=== PATIENT | female | born 1965 | race Caucasian/White ===

== ENCOUNTER 2016-04-22 19:43 | Emergency (ER) | payer OTHER ==
--- NOTE | ~2016-04-22 | CR20 ---
[facility] A Service of [facility] & [facility] RADIOLOGY TEXT RESULTS PATIENT: KAROLINE DO LOCATION: [facility] : 67 UNIT #: [id number] AGE: [address]: Enriqueta Bowman SEX: F ORDER DR: [id number] [facility] [address] [place], [place] [address] [id number] E MR#: [id number] Acc #: [id number] NAME: KAROLINE DO : 1965 SEX: F STUDY DATE/TIME: 04/22/2016 18:53 UNIT: [facility] ROOM: STUDY DESCRIPTION: CR Ankle Min 3 Views Lt Attending Physician: Enriqueta Bowman Pa-C Ordering Physician: Ed Juve Finn M.D. Primary Care Physician: Shweta Hernandez M.D. MEDICAL IMAGING REPORT This report is preliminary unless electronic signature is present EXAM Left ankle 3 views 04/22/2016. HISTORY Twisted left foot and ankle getting off commode today with a pain and swelling. FINDINGS AP, lateral, and oblique projections of the left ankle show satisfactory integrity of the joint mortise with a smooth articular surface. There is no identifiable fracture, dislocation, or radiopaque foreign body. IMPRESSION Normal left ankle. Dictated by... Luca Gee M.D. THIS IS AN ELECTRONICALLY VERIFIED REPORT Luca Gee M.D. at 04/23/2016 3:26 PM KRT/gz TD: 04/23/2016 14:13 JOB #: [id number] MEDICAL IMAGING REPORT COPY
--- NOTE | ~2016-04-22 | CR126 ---
[facility] A Service of [facility] & [facility] RADIOLOGY TEXT RESULTS PATIENT: KAROLINE DO LOCATION: [facility] : 67 UNIT #: [id number] AGE: [address]: Enriqueta Bowman SEX: F ORDER DR: [id number] [facility] [address] [place], [place] [address] [id number] E MR#: [id number] Acc #: [id number] NAME: KAROLINE DO : 1965 SEX: F STUDY DATE/TIME: 04/22/2016 18:56 UNIT: [facility] ROOM: STUDY DESCRIPTION: CR Foot Complete Min 3 View Lt Attending Physician: Enriqueta Bowman Pa-C Ordering Physician: Ed Doctor [id number] [facility] Primary Care Physician: Shweta Hernandez M.D. MEDICAL IMAGING REPORT This report is preliminary unless electronic signature is present EXAM Left foot 3 views 04/22/2016 HISTORY Left foot pain and swelling. Twisted left foot and ankle today getting off commode. FINDINGS The tarsal, metatarsal, and phalangeal elements are all anatomically normal in position and alignment. There are no articular defects. No fractures or radiopaque foreign bodies in the soft tissues are apparent. IMPRESSION Normal left foot. Dictated by... Luca Gee M.D. THIS IS AN ELECTRONICALLY VERIFIED REPORT Luca Gee M.D. at 04/23/2016 3:26 PM KRT/bernardo TD: 04/23/2016 14:16 JOB #: [id number] MEDICAL IMAGING REPORT COPY
--- NOTE | ~2016-04-22 | CR252 ---
[facility] A Service of [facility] & [facility] RADIOLOGY TEXT RESULTS PATIENT: KAROLINE DO LOCATION: [facility] : 67 UNIT #: [id number] AGE: [address]: Enriqueta Bowman SEX: F ORDER DR: [id number] [facility] [address] [place], [place] [address] [id number] E MR#: [id number] Acc #: [id number] NAME: KAROLINE DO : 1965 SEX: F STUDY DATE/TIME: 04/22/2016 18:52 UNIT: [facility] ROOM: STUDY DESCRIPTION: CR Tibia and Fibula 2 Views Lt Attending Physician: Enriqueta Bowman Pa-C Ordering Physician: Ed Juve Finn M.D. Primary Care Physician: Shweta Hernandez M.D. MEDICAL IMAGING REPORT This report is preliminary unless electronic signature is present EXAM Left tibia and fibula, 2 views, 04/22/2016. HISTORY Left lower extremity pain beginning today. Twisted left lower extremity while getting off commode today. FINDINGS There is no evidence of fracture, dislocation, or radiopaque foreign body. IMPRESSION Normal tibia and fibula. Dictated by... Luca Gee M.D. THIS IS AN ELECTRONICALLY VERIFIED REPORT Luca Gee M.D. at 04/23/2016 3:26 PM KRT/don TD: 04/23/2016 14:15 JOB #: [id number] MEDICAL IMAGING REPORT COPY
[~2016-04-22 19:43] MED LIST: ALAVERT10 M1 PO; ALBUTEROL MININEB NEB; ALBUTEROL17 GM INH; AMOXICILLIN; ASPIRIN PO; ASPIRIN81 M1 PO; ATARAX PO; ATORVASTATIN CA40 MG PO; BACITRACIN15 GM TOP; BACTRIM DS TABL1 TA1 PO; BACTROBAN OINTMENT; BACTROBAN15 GM TOP; BENADRYL25 MG PO; CALCIUM 500 + D1 TAB PO; CELEXA PO; CERTAGEN PO; CLARITIN10 M3 PO; CLEOCIN HCL300 M1 PO; COLACE PO; CRESTOR PO; DARVOCET-N 1001 TAB PO; DOXYCYCLINE HY100 M3 PO; DOXYCYCLINE PO; DOXYCYCLINE150 MG; DUETACT PO; DYAZIDE 37.5/251 CAP PO; DYRENIUM100 MG PO; EC-NAPROSYN500 MG PO; ERYTHROMYC3.5 GM OPT OD; FIORICET 50-321 EACH PO; FLEXERIL PO; GAS-X166 MG PO; HCTZ; HIBICLENS 4% L120 ML TOP; IBUPROFEN800 MG PO; KCL PO; KEFLEX PO; KEFLEX500 MG PO; KEPPRA500 M2 PO; KEPPRA500 MG PO; KEPPRA750 MG PO; LEVOXYL175 MCG PO; LEXAPRO; LIPITOR40 MG PO; LORATADINE PO; LORTAB 5/500 TA1 TA1 PO; LORTAB 5/500 TA1 TA2 PO; LORTAB 7.5-5001 TAB PO; MAXZIDE 75/50 T1 TAB PO; MOBIC15 MG DOB; MOBIC15 MG PO; MOM PO; MUPIROCIN; NAPROSYN-EC500 MG PO; NAPROSYN500 MG PO; NASAL SPRAY; NORCO 5/325 TAB1 TAB; OXYGEN; PHENERGAN PO; PHENERGAN25 M1 PO; PREDNISONE PO; PRILOSEC PO; PRILOSEC20 M1 PO; PRILOSEC20 MG DOB; PRILOSEC20 MG PO; PROAIR; PROZAC PO; RIFAMPIN300 MG PO; SIMVASTATIN40 MG; SYNTHROID PO; SYNTHROID175 MCG PO; TOPAMAX25 MG PO; TOPIRAGEN25 MG PO; TOPIRAMATE25 MG PO; VICODIN 5/500 T1 TAB PO; VICODIN PO; VISTARIL PO; ZOCOR; ZOCOR PO; [UNRECOGNIZED DRUG - OTHER]
== END 2016-04-22 20:01 | disposition home or self-care (01) ==
LOC: CFTX 19:43
DX: S93.402A Sprain of unspecified ligament of left ankle, initial encounter (principal); I10 Essential (primary) hypertension; K21.9 Gastro-esophageal reflux disease without esophagitis; J45.909 Unspecified asthma, uncomplicated; E03.9 Hypothyroidism, unspecified; X50.1XXA Overexertion from prolonged static or awkward postures, initial encounter; Y92.89 Other specified places as the place of occurrence of the external cause
CPT/HCPCS: 29540; 73590; 73610; 73630; 99284

== ENCOUNTER 2016-07-07 19:14 | Emergency (ER) | payer OTHER ==
--- NOTE | ~2016-07-07 | CR63 ---
[facility] A Service of [facility] & [facility] RADIOLOGY TEXT RESULTS PATIENT: KAROLINE DO LOCATION: [place] : 67 UNIT #: [id number] AGE: [address]: Latonya Madsen APRN SEX: F ORDER DR: [id number] [facility] [address] [place], [place] [address] [id number] E MR#: [id number] Acc #: [id number] NAME: KAROLINE DO : 1965 SEX: F STUDY DATE/TIME: 07/07/2016 21:29 UNIT: [facility] ROOM: STUDY DESCRIPTION: CR Chest 2 View Attending Physician: Latonya Madsen A.P.R.N. Ordering Physician: Latonya Madsen A.P.R.N. Primary Care Physician: Shweta Hernandez M.D. MEDICAL IMAGING REPORT This report is preliminary unless electronic signature is present EXAM Chest x-ray, 07/07/2016 INDICATION Cough and congestion for 3 days. FINDINGS 2 views of the chest are compared with 12/03/2013. The heart is enlarged. Lungs are clear. Vascularity is normal. There is no pneumothorax. Lateral view is essentially nondiagnostic due to patient body habitus. IMPRESSION Stable cardiomegaly. No active disease. Dictated by... Ha Sidhu Jr., M.D. THIS IS AN ELECTRONICALLY VERIFIED REPORT Ha Sidhu Jr., M.D. at 07/08/2016 10:14 AM CHARLIE/ki TD: 07/07/2016 22:10 JOB #: [id number] MEDICAL IMAGING REPORT Page 1 of 1 COPY
== END 2016-07-07 22:30 | disposition home or self-care (01) ==
LOC: CED 19:14 → CFTX 19:14
DX: J06.9 Acute upper respiratory infection, unspecified (principal); J44.9 Chronic obstructive pulmonary disease, unspecified; I10 Essential (primary) hypertension; E78.5 Hyperlipidemia, unspecified; K21.9 Gastro-esophageal reflux disease without esophagitis; F41.8 Other specified anxiety disorders; Z88.8 Allergy status to other drugs, medicaments and biological substances; Z88.2 Allergy status to sulfonamides; Z91.040 Latex allergy status; Z88.5 Allergy status to narcotic agent
CPT/HCPCS: 71020; 99283

== ENCOUNTER 2016-07-21 02:11 | Emergency (ER) | payer OTHER ==
--- NOTE | ~2016-07-21 | XA198 ---
[facility] A Service of [facility] RADIOLOGY TEXT RESULTS PATIENT: KAROLINE DO LOCATION: [facility] : 67 UNIT #: [id number] AGE: [address]: Ha Hoff MD SEX: F ORDER DR: [id number] [facility] [address] [place], [place] [address] [id number] E MR#: [id number] Acc #: [id number] NAME: KAROLINE DO : 1965 SEX: F STUDY DATE/TIME: 07/21/2016 8:25 UNIT: [facility] ROOM: STUDY DESCRIPTION: XA Spinal Puncture Attending Physician: Ha Hoff M.D. Ordering Physician: Karla Barnett M.D. Primary Care Physician: Shweta Hernandez M.D. MEDICAL IMAGING REPORT This report is preliminary unless electronic signature is present EXAM Lumbar puncture under fluoroscopy HISTORY Headache FINDINGS The procedure, attendant risks and options were discussed with the patient. She understands and wishes to proceed. The patient was placed in the prone position in the angio suite. An appropriate site was chosen. The skin was marked, prepped, draped and anesthetized with 1% Xylocaine. A long 20-gauge spinal needle was inserted into the lumbar subarachnoid space at the L1-2 level. 8 mL of clear CSF was retrieved. Total fluoroscopy time 1.6 minutes. Total exposure 305 mGy air kerma standard. The needle was removed. Hemostasis achieved. The patient returned to the waterman in stable condition. A single spot radiograph was obtained. CONCLUSION Successful LP under fluoro at the L1-2 level. Dictated by... Jesse Brewster M.D. THIS IS AN ELECTRONICALLY VERIFIED REPORT Jesse Brewster M.D. at 07/24/2016 9:18 AM Tatyana TD: 07/21/2016 11:39 JOB #: [id number] MEDICAL IMAGING REPORT [facility] A Service [facility] RADIOLOGY TEXT RESULTS PATIENT: KAROLINE DO LOCATION: [facility] : 67 UNIT #: [id number] AGE: [address]: Ha Hoff MD SEX: F ORDER DR: Page 1 of 1 COPY
--- NOTE | ~2016-07-21 | CT71 ---
[facility] A Service of [facility] RADIOLOGY TEXT RESULTS PATIENT: KAROLINE DO LOCATION: [facility] : 67 UNIT #: [id number] AGE: [address]: Karla Barnett MD SEX: F ORDER DR: [id number] [place] [id number] [facility] [place], [place] [address] [id number] P MR#: [id number] Acc #: [id number] NAME: KAROLINE DO : 1965 SEX: F STUDY DATE/TIME: 07/21/2016 3:08 UNIT: [facility] ROOM: STUDY DESCRIPTION: CT Head Wo Contrast Attending Physician: Karla Barnett M.D. Ordering Physician: Karla Barnett M.D. Primary Care Physician: Shweta Hernandez M.D. MEDICAL IMAGING REPORT This report is preliminary unless electronic signature is present EXAM CT head, noncontrast, 07/21/2016 HISTORY 51-year-old female in the ED complaining of headache, blurred vision and that left side neck pain beginning at about 2330 hours on 07/20/2016. TECHNIQUE CT examination of the head was performed without IV contrast. This CT exam was performed with one or more of the following radiation dose reduction techniques: automatic exposure control, adjustment of mA and/or kV according to patient size, and iterative reconstruction. FINDINGS The examination is negative. No evidence of intracranial hemorrhage, mass, mass effect, cerebral edema, hydrocephalus or additional abnormality. No change since the prior study of 12/03/2013. IMPRESSION Negative head CT examination. No change since 12/03/2013. Dictated by... Tin Szymanski M.D. THIS IS AN ELECTRONICALLY VERIFIED REPORT Tin Szymanski M.D. at 07/21/2016 6:06 AM Prudencio TD: 07/21/2016 04:13 JOB #: [id number] [facility] A Service [facility] RADIOLOGY TEXT RESULTS PATIENT: KAROLINE DO LOCATION: [facility] #: [id number] : 67 UNIT #: [id number] AGE: [address]: Karla Barnett MD SEX: F ORDER DR: MEDICAL IMAGING REPORT Page 1 of 1 COPY
--- NOTE | ~2016-07-21 | CT23 ---
[facility] A Service of [facility] & [facility] RADIOLOGY TEXT RESULTS PATIENT: KAROLINE DO LOCATION: [facility] : 67 UNIT #: [id number] AGE: [address]: Ha Hoff MD SEX: F ORDER DR: [id number] [facility] [address] [place], [place] [address] [id number] E MR#: [id number] Acc #: [id number] NAME: KAROLINE DO : 1965 SEX: F STUDY DATE/TIME: 07/21/2016 3:21 UNIT: [facility] ROOM: STUDY DESCRIPTION: CT Angio Neck Attending Physician: Ha Hoff M.D. Ordering Physician: Karla Barnett M.D. Primary Care Physician: Shweta Hernandez M.D. MEDICAL IMAGING REPORT This report is preliminary unless electronic signature is present EXAM CT angiogram of the neck HISTORY FINDINGS Please see CT angiogram of the head for results. Dictated by... Antonieta Pavon M.D. THIS IS AN ELECTRONICALLY VERIFIED REPORT Antonieta Pavon M.D. at 07/21/2016 9:14 AM Sonia TD: 07/21/2016 08:59 JOB #: [id number] MEDICAL IMAGING REPORT Page 1 of 1 COPY
--- NOTE | ~2016-07-21 | CT17 ---
[facility] A Service of [facility] & [facility] RADIOLOGY TEXT RESULTS PATIENT: KAROLINE DO LOCATION: [facility] : 67 UNIT #: [id number] AGE: [address]: Ha Hoff MD SEX: F ORDER DR: [id number] [facility] [address] [place], [place] [address] [id number] E MR#: [id number] [facility] #: [id number] NAME: KAROLINE DO : 1965 SEX: F STUDY DATE/TIME: 07/21/2016 3:21 UNIT: [facility] ROOM: STUDY DESCRIPTION: CT Angio Head Attending Physician: Ha Hoff M.D. Ordering Physician: Karla Barnett M.D. Primary Care Physician: Shweta Hernandez M.D. MEDICAL IMAGING REPORT This report is preliminary unless electronic signature is present EXAM CT angiogram of the head and neck HISTORY Headache since 23:30 today. No known injury. Pain has left-sided neck pain and blurred vision. TECHNIQUE This CT exam was performed with one or more of the following radiation dose reduction techniques: automatic exposure control, adjustment of mA and/or kV according to patient size, and iterative reconstruction. COMMENT CT angiography of the head and neck vessels performed during the intravenous administration of Isovue-370. The dose is not recorded in the PACS system and please refer to the patient's chart. Imaging acquired in the axial plane followed by multiple reconstructed and reformatted images for the purpose of 3-D CT angiography of the head and neck vessels. Comparison is made to an earlier head CT same day. Preliminary wet reading provided at 04:[address] ANGIOGRAM NECK: The study is limited by the patient's morbid obesity. Allowing for this the aortic arch branch pattern is normal and there is no hemodynamically-significant narrowing appreciated at great vessel origins. The vessels in the lower neck are particularly obscured by beam-hardening artifact from the patient's obesity. Patient's carotid systems have a medial course underlying the retropharyngeal space. By NASCET criteria 0% stenosis is suspected at either carotid bifurcation. Both carotid siphons are widely patent. Right and left vertebral arteries are grossly patent though proximally they are mostly obscured. Evaluation of the intracranial circulation shows no intracranial vascular cutoff. There is a right posterior communicator present. There is [facility] Service of [facility] & [facility] RADIOLOGY TEXT RESULTS PATIENT: KAROLINE DO LOCATION: [facility] : 67 UNIT #: [id number] AGE: [address]: Ha Hoff MD SEX: F ORDER DR: fullness at the junction of the right A1-A2 vessels up to about 4.0 mm in diameter. This is concerning for fusiform aneurysm. There might be a tiny anterior communicating artery present. A small right posterior communicator and there is probably a tiny left posterior communicator. The dural venous sinuses are patent. The right P1 vessel is mildly hypoplastic. CT angiography is limited for evaluation for aneurysm at the level of the skull base due to the adjacent bones. IMPRESSION 1. There is concern for a fusiform 4.0 mm diameter aneurysm junction right side A1-A2 vessel. There might be tiny anterior communicator adjacent to this. 2. There is no intracranial vascular cutoff. Vascular variations are discussed above. 3. By NASCET criteria 0% stenosis at either carotid bifurcation. Both vertebral arteries are patent in the neck. Both supply the basilar. 4. Study is limited by the patient's morbid obesity. In particular the beam-hardening artifact is so severe that the proximal vessels of the neck are poorly seen. 5. It appears the patient has already been scheduled for a lumbar puncture for further evaluation. ADDENDUM Findings called by myself to Dr. Hoff in the emergency room at the time of this dictation. STAT * RESULT Dictated by... Antonieta Pavon M.D. THIS IS AN ELECTRONICALLY VERIFIED REPORT Antonieta Pavon M.D. at 07/21/2016 9:14 AM Sonia TD: 07/21/2016 08:58 JOB #: [id number] MEDICAL IMAGING REPORT Page 1 of 1 COPY
[2016-07-21 03:10] LABS: BASOPHIL# 0.1 X10e3 (0-0.3); BASOPHIL% 0.8 % (0-2.5); EOSINOPHIL# 0.4 X10e3 (0-0.7); EOSINOPHIL% 5.9 % (0.0-7.0); HEMATOCRIT 40.2 % (35.0-45.0); HEMOGLOBIN 12.8 gm/dL (12.0-16.0); LYMPHOCYTE# 1.8 X10e3 (1.0-3.5); LYMPHOCYTE% 29.7 % (17.0-45.0); MEAN CELL VOLUME 91.5 FL (83-96); MEAN CORPUSCULAR HEMOGLOBIN 29.2 PG (28-34); MEAN CORPUSCULAR HGB CONC 31.9 g/dL (30-36); MEAN PLATELET VOLUME 11.8 FL (6.5-11.5); MONOCYTE# 0.4 X10e3 (0-1.0); MONOCYTE% 6.3 % (3.0-12.0); NEUTROPHIL# 3.5 X10e3 (1.5-7.1); NEUTROPHIL% 57.3 % (40-75); PLATELET COUNT 134 X10e3 (140-420); RED BLOOD COUNT 4.39 X10e (3.90-5.30); RED CELL DISTRIBUTION WIDTH 14.8 % (11.0-15.5); WHITE BLOOD COUNT 6.1 X10e3 (4.0-10.5)
[2016-07-21 03:27] LABS: PARTIAL THROMBOPLASTIN TIME 28.9 SECONDS (23.5-31.3); PROTHROMBIN TIME (PATIENT) 10.3 SECONDS (9.6-11.5)
[2016-07-21 03:32] LABS: ALBUMIN SERUM 3.7 g/dL (3.5-5.0); BILIRUBIN, DIRECT 0.1 mg/dL (0.0-0.2); BILIRUBIN,INDIRECT 0.8 mg/dL (0.0-0.9); BILIRUBIN,TOTAL 0.9 mg/dL (0.2-2.0); BUN/CREATININE RATIO 15.71; CREATININE SERUM 0.7 mg/dL (0.6-1.4); DIFF IND NO; POTASSIUM 3.6 mmol/L (3.5-5.1); PROTEIN TOTAL SERUM 6.5 g/dL (6.0-8.3)
[2016-07-21 04:05] LABS: POC - CREATININE 0.81 mg/dL (0.44-1.03); POC - GFR >60.0 mL/min (>60)
[2016-07-21 10:48] LABS: CSF TUBE NUMBER 1
[2016-07-21 10:49] LABS: CSF APPEARANCE CLEAR (CLEAR); CSF RBC 3 CMM (0); CSF TUBE NUMBER 4; CSF WBC 0 CMM (0-8); CSF XANTHACHROMIC NO
[2016-07-21 10:50] LABS: CSF RBC 6 CMM (0)
[2016-07-21 11:08] LABS: GLUCOSE-CSF 71 mg/dL (50-80); PROTEIN-CSF 37 mg/dL (15-45)
== END 2016-07-21 11:45 | disposition home or self-care (01) ==
LOC: CED 02:11
PROVIDERS: Emergency Medicine
PROC: 009U3ZZ Drainage of Spinal Canal, Percutaneous Approach (ICD-10-PCS; principal; 2016-07-21)
DX: R51 Headache (principal); E11.9 Type 2 diabetes mellitus without complications; E78.5 Hyperlipidemia, unspecified; F90.9 Attention-deficit hyperactivity disorder, unspecified type; E03.9 Hypothyroidism, unspecified; Z98.890 Other specified postprocedural states; Z88.1 Allergy status to other antibiotic agents; Z88.2 Allergy status to sulfonamides; Z91.040 Latex allergy status; Z88.8 Allergy status to other drugs, medicaments and biological substances; Z88.5 Allergy status to narcotic agent
CPT/HCPCS: 70450; 70496; 70498; 77003; 80048; 80076; 82565; 82945; 84157; 85025; 85610; 85730; 87070; 87205; 89051; 96361; 96374; 96375; 99284; C1713; J1170; J1200; J1885; J2405; J2765; Q9967

== ENCOUNTER 2016-08-09 22:32 | Emergency (ER) | payer OTHER ==
--- NOTE | ~2016-08-09 | CR72 ---
[facility] A Service of [facility] & [facility] RADIOLOGY TEXT RESULTS PATIENT: KAROLINE DO LOCATION: [facility] : 67 UNIT #: [id number] AGE: [address]: MARKUS QUINTANA APRN SEX: F ORDER DR: [id number] [facility] [address] [place], [place] [address] [id number] E MR#: [id number] Acc #: [id number] NAME: KAROLINE DO : 1965 SEX: F STUDY DATE/TIME: 08/09/2016 23:32 UNIT: [facility] ROOM: STUDY DESCRIPTION: CR Chest Single View Portable Attending Physician: Markus Quintana Aprn Ordering Physician: Markus Quintana Aprn Primary Care Physician: Shweta Hernandez M.D. MEDICAL IMAGING REPORT This report is preliminary unless electronic signature is present EXAM Portable chest INDICATION Chest pain, shortness of air for the past 2 days. PROCEDURE Frontal view chest. COMPARISON 07/07/2016. FINDINGS Stable mild cardiomegaly. There is no dense consolidation, pleural fluid or pneumothorax. IMPRESSION Stable mild cardiomegaly. Dictated by... Jose Rasmussen M.D. THIS IS AN ELECTRONICALLY VERIFIED REPORT Jose Rasmussen M.D. at 08/10/2016 10:28 PM MIKEL/betzaida TD: 08/10/2016 08:15 JOB #: [id number] MEDICAL IMAGING REPORT Page 1 of 1 COPY
--- NOTE | ~2016-08-09 | EKG ---
PATIENT: KAROLINE DO UNIT #: [id number] Ventricular Rate: 68 BPM Atrial Rate: 68 BPM P-R Interval: 176 ms QRS Duration: 86 ms Q-T Interval: 384 ms QTC Calculation(Bezet): 408 ms P Murphy: 0 degrees Calculated R Murphy: 10 degrees Calculated T Murphy: 55 degrees Diagnosis Line: Normal sinus rhythm Diagnosis Line: Normal ECG Diagnosis Line: When compared with ECG of 19-JAN-2014 16:07, Diagnosis Line: No significant change was found Diagnosis Line: Confirmed by TIFF MCDOWELL MD ([id number]) on Diagnosis Line: 08/10/2016 11:04:50 AM INTERPRETING MD: TREVON
[2016-08-10 00:18] LABS: BASOPHIL# 0.1 X10e3 (0-0.3); EOSINOPHIL# 0.3 X10e3 (0-0.7); EOSINOPHIL% 4.3 % (0.0-7.0); HEMATOCRIT 38.5 % (35.0-45.0); HEMOGLOBIN 12.3 gm/dL (12.0-16.0); LYMPHOCYTE% 26.2 % (17.0-45.0); MEAN CELL VOLUME 90.5 FL (83-96); MEAN CORPUSCULAR HGB CONC 32.1 g/dL (30-36); MEAN PLATELET VOLUME 11.6 FL (6.5-11.5); MONOCYTE# 0.4 X10e3 (0-1.0); NEUTROPHIL# 4.7 X10e3 (1.5-7.1); NEUTROPHIL% 62.5 % (40-75); PLATELET COUNT 161 X10e3 (140-420); RED BLOOD COUNT 4.25 X10e (3.90-5.30); RED CELL DISTRIBUTION WIDTH 14.9 % (11.0-15.5); WHITE BLOOD COUNT 7.5 X10e3 (4.0-10.5)
[2016-08-10 00:22] LABS: DIFF IND NO
[2016-08-10 00:41] LABS: BILIRUBIN, DIRECT 0.2 mg/dL (0.0-0.2); BILIRUBIN,INDIRECT 0.4 mg/dL (0.0-0.9); BILIRUBIN,TOTAL 0.6 mg/dL (0.2-2.0); BUN/CREATININE RATIO 17.14; CALCIUM SERUM 9.3 mg/dL (8.4-10.2); CREATININE SERUM 0.7 mg/dL (0.6-1.4); POTASSIUM 4.6 mmol/L (3.5-5.1); PROTEIN TOTAL SERUM 6.9 g/dL (6.0-8.3)
[2016-08-10 00:55] LABS: POC - CKMB 1.4 ng/mL (0.0-7.9); POC - TROPONIN <0.05 ng/mL (<=0.05)
[2016-08-10 02:16] LABS: POC - CKMB 1.1 ng/mL (0.0-7.9); POC - TROPONIN <0.05 ng/mL (<=0.05)
== END 2016-08-10 03:05 | disposition home or self-care (01) ==
LOC: CED 22:32
PROVIDERS: Nurse Practitioner Family
DX: R07.89 Other chest pain (principal); R06.02 Shortness of breath; E11.9 Type 2 diabetes mellitus without complications; I10 Essential (primary) hypertension; K21.9 Gastro-esophageal reflux disease without esophagitis; J44.9 Chronic obstructive pulmonary disease, unspecified; J45.909 Unspecified asthma, uncomplicated; F41.9 Anxiety disorder, unspecified; E66.01 Morbid (severe) obesity due to excess calories; Z88.1 Allergy status to other antibiotic agents; Z88.2 Allergy status to sulfonamides; Z88.5 Allergy status to narcotic agent; Z91.040 Latex allergy status
CPT/HCPCS: 36415; 71010; 80048; 80076; 82553; 84484; 85025; 93005; 96374; 99285; J2405

== ENCOUNTER 2016-08-20 08:45 | Emergency (ER) | payer OTHER ==
--- NOTE | ~2016-08-20 | CR20 ---
[facility] A Service of [facility] & [facility] RADIOLOGY TEXT RESULTS PATIENT: KAROLINE DO LOCATION: [facility] : 67 UNIT #: [id number] AGE: [address]: Katie Mustafa APRN SEX: F ORDER DR: [id number] [facility] [address] [place], [place] [address] [id number] E MR#: [id number] Acc #: [id number] NAME: KAROLINE DO : 1965 SEX: F STUDY DATE/TIME: 08/20/2016 10:09 UNIT: [facility] ROOM: STUDY DESCRIPTION: CR Ankle Min 3 Views Lt Attending Physician: Katie Mustafa A.P.R.N. Referring Physician: Enrike Brenner M.D. Ordering Physician: Ed Juve Finn M.D. Primary Care Physician: Shweta Hernandez M.D. MEDICAL IMAGING REPORT This report is preliminary unless electronic signature is present EXAM Left ankle. HISTORY Leg gave out yesterday. Patient fell. Ankle pain. TECHNIQUE Three views of the left ankle were obtained and compared with 04/22/2016. FINDINGS Small bone spurs are seen both medially and laterally. This is unchanged. There is no evidence of fracture. The ankle mortise is symmetric and the dome of the talus is intact. IMPRESSION Mild degenerative changes at the ankle. No fracture seen. Dictated by... Ha Patel M.D. THIS IS AN ELECTRONICALLY VERIFIED REPORT Ha Patel M.D. at 08/21/2016 9:58 AM JIGAR/terence TD: 08/20/2016 20:16 JOB #: [id number] MEDICAL IMAGING REPORT Page 1 of 1 COPY
--- NOTE | ~2016-08-20 | CR169 ---
[facility] A Service of [facility] & [facility] RADIOLOGY TEXT RESULTS PATIENT: KAROLINE DO LOCATION: [facility] : 67 UNIT #: [id number] AGE: [address]: Katie Mustafa APRN SEX: F ORDER DR: [id number] [facility] [address] [place], [place] [address] [id number] E MR#: [id number] Acc #: [id number] NAME: KAROLINE DO : 1965 SEX: F STUDY DATE/TIME: 08/20/2016 10:10 UNIT: [facility] ROOM: STUDY DESCRIPTION: CR Knee 2 Views Lt Attending Physician: Katie Mustafa A.P.R.N. Referring Physician: Enrike Brenner M.D. Ordering Physician: Ed Juve Finn M.D. Primary Care Physician: Shweta Hernandez M.D. MEDICAL IMAGING REPORT This report is preliminary unless electronic signature is present EXAM Left knee. HISTORY Knee pain after falling yesterday. TECHNIQUE Two views of the left knee were obtained. FINDINGS Two views of the knee show joint space narrowing at all 3 compartments with large osteophytes consistent with osteoarthritis. There is no evidence of fracture. There is a small joint effusion. No osteochondral fragments are noted. No prepatellar swelling is seen. IMPRESSION Advanced osteoarthritis in all 3 compartments. No acute abnormalities noted. Dictated by... Ha Patel M.D. THIS IS AN ELECTRONICALLY VERIFIED REPORT Ha Patel M.D. at 08/21/2016 9:58 AM JIGAR/terence TD: 08/20/2016 20:26 JOB #: [id number] MEDICAL IMAGING REPORT Page 1 of 1 COPY
== END 2016-08-20 11:44 | disposition home or self-care (01) ==
LOC: CED 08:45
DX: S93.402A Sprain of unspecified ligament of left ankle, initial encounter (principal); S83.92XA Sprain of unspecified site of left knee, initial encounter; E11.9 Type 2 diabetes mellitus without complications; I10 Essential (primary) hypertension; E66.01 Morbid (severe) obesity due to excess calories; Z68.44 Body mass index [BMI] 60.0-69.9, adult; Z88.1 Allergy status to other antibiotic agents; Z88.2 Allergy status to sulfonamides; Z88.5 Allergy status to narcotic agent; Z91.040 Latex allergy status; Z91.011 Allergy to milk products; W19.XXXA Unspecified fall, initial encounter; Y92.003 Bedroom of unspecified non-institutional (private) residence as the place of occurrence of the external cause
CPT/HCPCS: 73560; 73610; 99284

== ENCOUNTER 2016-08-26 14:54 | Emergency (ER) | payer OTHER ==
--- NOTE | ~2016-08-26 | CR72 ---
[facility] A Service of [facility] & [facility] RADIOLOGY TEXT RESULTS PATIENT: KAROLINE DO LOCATION: [facility] : 67 UNIT #: [id number] AGE: [address]: Ha Hoff MD SEX: F ORDER DR: [id number] [facility] [address] [place], [place] [address] [id number] E MR#: [id number] Acc #: [id number] NAME: KAROLINE DO : 1965 SEX: F STUDY DATE/TIME: 08/26/2016 15:18 UNIT: [facility] ROOM: STUDY DESCRIPTION: CR Chest Single View Portable Attending Physician: Ha Hoff M.D. Ordering Physician: Ha Hoff M.D. Primary Care Physician: Shweta Hernandez M.D. MEDICAL IMAGING REPORT This report is preliminary unless electronic signature is present EXAM Portable chest, 08/26/2016. HISTORY Left-side chest pain beginning today. Benign essential hypertension, shortness of breath COPD exacerbation, diabetes. FINDINGS The cardiac and mediastinal structures are stable compared with 08/09/2016. The lungs are clear. There are no pleural effusions. IMPRESSION Stable mild cardiac enlargement compared with 08/09/2016. No active pulmonary disease. Dictated by... Luca Gee M.D. THIS IS AN ELECTRONICALLY VERIFIED REPORT Luca Gee M.D. at 08/29/2016 10:14 AM MANJULA/terence TD: 08/26/2016 18:44 JOB #: [id number] MEDICAL IMAGING REPORT Page 1 of 1 COPY
--- NOTE | ~2016-08-26 | EKG ---
PATIENT: KAROLINE DO UNIT #: [id number] Ventricular Rate: 66 BPM Atrial Rate: 66 BPM P-R Interval: 176 ms QRS Duration: 96 ms Q-T Interval: 384 ms QTC Calculation(Bezet): 402 ms P [place]: 24 degrees Calculated R [place]: 22 degrees Calculated T [place]: 70 degrees Diagnosis Line: Normal sinus rhythm Diagnosis Line: Normal ECG Diagnosis Line: No previous ECGs available Diagnosis Line: Confirmed by ANUPAM GARZON MD ([id number]) on 08/26/2016 Diagnosis Line: 5:44:16 PM INTERPRETING MD: DURAN KHANNA
[2016-08-26 16:40] LABS: BASOPHIL# 0.1 X10e3 (0-0.3); BASOPHIL% 0.8 % (0-2.5); EOSINOPHIL# 0.4 X10e3 (0-0.7); EOSINOPHIL% 5.1 % (0.0-7.0); HEMATOCRIT 40.3 % (35.0-45.0); LYMPHOCYTE# 1.9 X10e3 (1.0-3.5); LYMPHOCYTE% 24.2 % (17.0-45.0); MEAN CELL VOLUME 90.5 FL (83-96); MEAN CORPUSCULAR HEMOGLOBIN 29.2 PG (28-34); MEAN CORPUSCULAR HGB CONC 32.3 g/dL (30-36); MEAN PLATELET VOLUME 12.1 FL (6.5-11.5); MONOCYTE# 0.5 X10e3 (0-1.0); MONOCYTE% 5.9 % (3.0-12.0); NEUTROPHIL# 4.9 X10e3 (1.5-7.1); PLATELET COUNT 148 X10e3 (140-420); RED BLOOD COUNT 4.45 X10e (3.90-5.30); RED CELL DISTRIBUTION WIDTH 14.8 % (11.0-15.5); WHITE BLOOD COUNT 7.7 X10e3 (4.0-10.5)
[2016-08-26 16:42] LABS: DIFF IND NO
[2016-08-26 16:50] LABS: POC - CKMB <1.0 ng/mL (0.0-7.9); POC - TROPONIN <0.05 ng/mL (<=0.05)
[2016-08-26 17:02] LABS: ALBUMIN SERUM 3.9 g/dL (3.5-5.0); BILIRUBIN, DIRECT 0.1 mg/dL (0.0-0.2); BILIRUBIN,INDIRECT 0.8 mg/dL (0.0-0.9); BILIRUBIN,TOTAL 0.9 mg/dL (0.2-2.0); BUN/CREATININE RATIO 15.71; CREATININE SERUM 0.7 mg/dL (0.6-1.4); POTASSIUM 3.7 mmol/L (3.5-5.1); PROTEIN TOTAL SERUM 6.9 g/dL (6.0-8.3)
== END 2016-08-26 17:45 | disposition home or self-care (01) ==
LOC: CED 14:54
PROVIDERS: Emergency Medicine
DX: R07.89 Other chest pain (principal); R55 Syncope and collapse; E78.5 Hyperlipidemia, unspecified; I10 Essential (primary) hypertension; Z88.1 Allergy status to other antibiotic agents; Z88.2 Allergy status to sulfonamides; Z88.5 Allergy status to narcotic agent; Z91.040 Latex allergy status
CPT/HCPCS: 36415; 71010; 80048; 80076; 82553; 82947; 83880; 84484; 85025; 93005; 99285; J1885

== ENCOUNTER 2016-09-08 22:31 | Emergency (ER) | payer OTHER ==
[~2016-09-08] VITALS: Ht 147.3 cm; Wt 154.2 kg
== END 2016-09-08 23:30 | disposition home or self-care (01) ==
LOC: CFTX 22:31 → CED 22:31 → CFTX 23:28
DX: L25.9 Unspecified contact dermatitis, unspecified cause (principal); I10 Essential (primary) hypertension; J44.9 Chronic obstructive pulmonary disease, unspecified; F32.9 Major depressive disorder, single episode, unspecified; Z90.89 Acquired absence of other organs; Z88.1 Allergy status to other antibiotic agents; Z88.2 Allergy status to sulfonamides; Z88.5 Allergy status to narcotic agent; Z91.011 Allergy to milk products; Z91.040 Latex allergy status
CPT/HCPCS: 99282

== ENCOUNTER 2016-09-26 17:57 | Emergency (ER) | payer OTHER ==
[~2016-09-26] VITALS: Ht 147.3 cm; Wt 152.4 kg
[2016-09-26 20:49] LABS: BASOPHIL# 0.1 X10e3 (0-0.3); EOSINOPHIL# 0.3 X10e3 (0-0.7); EOSINOPHIL% 3.8 % (0.0-7.0); HEMATOCRIT 39.9 % (35.0-45.0); HEMOGLOBIN 12.8 gm/dL (12.0-16.0); LYMPHOCYTE# 1.5 X10e3 (1.0-3.5); LYMPHOCYTE% 22.2 % (17.0-45.0); MEAN CORPUSCULAR HEMOGLOBIN 29.1 PG (28-34); MEAN PLATELET VOLUME 11.2 FL (6.5-11.5); MONOCYTE# 0.4 X10e3 (0-1.0); MONOCYTE% 5.9 % (3.0-12.0); NEUTROPHIL# 4.6 X10e3 (1.5-7.1); NEUTROPHIL% 67.1 % (40-75); PLATELET COUNT 173 X10e3 (140-420); RED BLOOD COUNT 4.39 X10e (3.90-5.30); RED CELL DISTRIBUTION WIDTH 15.2 % (11.0-15.5); WHITE BLOOD COUNT 6.9 X10e3 (4.0-10.5)
[2016-09-26 20:51] LABS: DIFF IND NO
[2016-09-26 21:09] LABS: CALCIUM SERUM 9.1 mg/dL (8.4-10.2); GLOM FILT RATE Estimated 65.7 mL/min (>60); POTASSIUM 3.3 mmol/L (3.5-5.1)
== END 2016-09-26 21:40 | disposition home or self-care (01) ==
LOC: CED 17:57
PROVIDERS: Emergency Medicine
DX: L03.311 Cellulitis of abdominal wall (principal); L08.9 Local infection of the skin and subcutaneous tissue, unspecified; E78.5 Hyperlipidemia, unspecified; J44.9 Chronic obstructive pulmonary disease, unspecified; K21.9 Gastro-esophageal reflux disease without esophagitis; E03.9 Hypothyroidism, unspecified; Z88.2 Allergy status to sulfonamides; Z88.5 Allergy status to narcotic agent; Z91.040 Latex allergy status; Z88.1 Allergy status to other antibiotic agents; Z91.011 Allergy to milk products
CPT/HCPCS: 80048; 85025; 96372; 99283

== ENCOUNTER 2016-10-20 19:36 | Emergency (ER) | payer OTHER ==
[~2016-10-20] VITALS: Ht 147.3 cm; Wt 136.1 kg
--- NOTE | ~2016-10-20 | CR142 ---
[facility] A Service of [facility] RADIOLOGY TEXT RESULTS PATIENT: KAROLINE DO LOCATION: [facility] : 67 UNIT #: [id number] AGE: [address]: MARKUS QUINTANA APRN SEX: F ORDER DR: [id number] [facility] [address] [place], [place] [address] [id number] E MR#: [id number] Acc #: [id number] NAME: KAROLINE DO. : 1965 SEX: F STUDY DATE/TIME: 10/20/2016 20:11 UNIT: [facility] ROOM: STUDY DESCRIPTION: CR Hand Min 3 Views Rt Attending Physician: Markus Quintana Aprn Ordering Physician: Markus Quintana Aprn Primary Care Physician: Shweta Hernandez M.D. MEDICAL IMAGING REPORT This report is preliminary unless electronic signature is present EXAM 3 view right hand. HISTORY Pain in right hand and wrist after a fall 10/20/2016. COMMENT 3 view of the right hand are reviewed. COMPARISON No previous. FINDINGS There is evidence for osteoarthritis and positioning on the oblique film suggests possible boutonniere deformity second through fourth digits. Please correlate with physical exam. This could simply be due to positioning. There is no acute fracture, dislocation or radiopaque foreign body suspected. IMPRESSION Osteoarthritis without evidence for acute fracture, dislocation or radiopaque foreign body. On the oblique film there is suggestion of boutonniere deformity of the second through fourth digits. This could be positional. Please correlate with physical examination. Dictated by... Antonieta Pavon M.D. THIS IS AN ELECTRONICALLY VERIFIED REPORT Antonieta Pavon M.D. at 10/21/2016 11:16 AM SAC/gz [facility] A Service [facility] RADIOLOGY TEXT RESULTS PATIENT: KAROLINE DO LOCATION: [facility] : 67 UNIT #: [id number] AGE: [address]: MARKUS QUINTANA APRN SEX: F ORDER DR: TD: 10/21/2016 09:22 JOB #: [id number] MEDICAL IMAGING REPORT Page 1 of 1 COPY
--- NOTE | ~2016-10-20 | CR286 ---
[facility] A Service of [facility] RADIOLOGY TEXT RESULTS PATIENT: KAROLINE DO LOCATION: [facility] : 67 UNIT #: [id number] AGE: [address]: MARKUS QUINTANA APRN SEX: F ORDER DR: [id number] [facility] [address] [place], [place] [address] [id number] MR#: [id number] #: [id number] NAME: KAROLINE DO. : 1965 SEX: F STUDY DATE/TIME: 10/20/2016 20:13 UNIT: [facility] ROOM: STUDY DESCRIPTION: CR Wrist W Navicular Min 3 Rt Attending Physician: Markus Quintana Aprn Ordering Physician: Markus Quintana Aprn Primary Care Physician: Shweta Hernandez M.D. MEDICAL IMAGING REPORT This report is preliminary unless electronic signature is present EXAM Wrist right three-view study with navicular. HISTORY Fell today and has pain in the right wrist. COMMENT 4 films of the right wrist are reviewed including a navicular film. COMPARISON No previous. FINDINGS See separate hand dictation. There is evidence for osteoarthritis, in particular at the first carpometacarpal joint with some mild subluxation. There is osteoarthritis of the radiocarpal joint and at the distal radioulnar joint. There is no acute fracture suspected. No dislocation. IMPRESSION 1. Findings of osteoarthritis without evidence for acute fracture or dislocation right wrist. Dictated by... Antonieta Pavon M.D. THIS IS AN ELECTRONICALLY VERIFIED REPORT Antonieta Pavon M.D. at 10/21/2016 11:16 AM SAC/gz TD: 10/21/2016 09:28 JOB #: [id number] [facility] A Service [facility] RADIOLOGY TEXT RESULTS PATIENT: KAROLINE DO LOCATION: [facility] : 67 UNIT #: [id number] AGE: [address]: MARKUS QUINTANA APRN SEX: F ORDER DR: MEDICAL IMAGING REPORT Page 1 of 1 COPY
== END 2016-10-20 21:13 | disposition home or self-care (01) ==
LOC: CFTX 19:36 → CED 19:36 → CFTX 20:01
DX: S63.501A Unspecified sprain of right wrist, initial encounter (principal); I10 Essential (primary) hypertension; J45.909 Unspecified asthma, uncomplicated; J44.9 Chronic obstructive pulmonary disease, unspecified; F41.9 Anxiety disorder, unspecified; Z88.1 Allergy status to other antibiotic agents; Z88.2 Allergy status to sulfonamides; Z88.5 Allergy status to narcotic agent; Z91.040 Latex allergy status; Z91.011 Allergy to milk products; W01.0XXA Fall on same level from slipping, tripping and stumbling without subsequent striking against object, initial encounter; Y92.009 Unspecified place in unspecified non-institutional (private) residence as the place of occurrence of the external cause
CPT/HCPCS: 29125; 73110; 73130; 99283